=== PATIENT | female | born 1945 | race Caucasian/White ===

== ENCOUNTER → 2019-05-24 | Outpatient (CLI) | payer OTHER ==
[~2019-05-24] VITALS: Ht 170.2 cm; Wt 72.6 kg
[~2019-05-24] MED LIST: ASPIR 8181 MG PO; INDAPAMIDE1.25 MG PO; OMEPRAZOLE 20 M20 M1 PO; POTASSIUM20 PO; VERAPAMIL E.R240 M1 PO; ZYRTEC10 M5 PO
--- NOTE | 2019-05-26 16:06 | PATH ---
[facility] [place] [address] PATHOLOGY RPT PROCEDURE Name: RASTA URBANO [facility] [id number] Admission: 05/24/19 Date of : 41 Discharge: Report #: [id number] Path Case #: [id number] [facility] Accession Number: [id number] . 01 Material submitted: . PART A: colon - RANDOM COLON BIOPSY R/O MICROSCOPIC COLITIS PART B: colon - POLYP AT TRANSVERSE COLON. Modifiers: transverse PART C: colon - POLYP AT DESCENDING COLON. Modifiers: descending . 01 Clinical history: . Preop DX: intermittent diarrhea, hx polyps Postop DX: colon polyps A. R/O microscopic colitis . 02 Diagnosis: A. Large intestinal mucosa, random colon R/O microscopic colitis, endoscopic biopsy: - Scattered rare focus of acute cryptitis, see comment. - Negative for microscopic colitis. - Negative for dysplasia or malignancy. . B. Polyp, at transverse colon, endoscopic biopsy: - Tubular adenoma. - Negative for high-grade dysplasia. . C. Polyp, at descending colon, endoscopic biopsy: - Tubular adenoma. - Negative for high-grade dysplasia. (IUV:cali; 05/26/2019) QMS 05/26/2019 1326 Local . 02 Comment: The differential diagnosis for the focal acute cryptitis includes a resolved episode of colitis, a self-limited episode of colitis, diverticulitis, medication/drug induced colitis as well as due to bowel preparation. Please correlate clinically. (IUV:cali; 05/26/2019) . 02 Electronically signed: . Nadya Helms MD, Pathologist NPI- [id number] . 01 Gross description: . A. Received in formalin labeled "Rasta Urbano, random colon bx R/O micro colitis," are multiple fragments of esteban-brown soft tissue measuring 0.8 x 0.7 x 0.2 cm in aggregate dimensions and ranging from 0.1 to 0.4 cm in maximum dimension. The specimen is submitted entirely in cassette A1. [address] [address] PATHOLOGY RPT PROCEDURE Name: RASTA URBANO Room #: REG JENNA Kay#: [id number] Admission: 05/24/19 Date of : 41 Discharge: Report #: [id number] Path Case #: [id number] The smallest fragments may not survive processing. . B. Received in formalin labeled "Mchenry, [place], polyp at transverse colon," is a segment of esteban-brown soft tissue measuring 0.4 x 0.3 x 0.2 cm in greatest dimensions. The specimen is submitted entirely in cassette B1. . C. Received in formalin labeled "Mchenry, [place], polyp at descending colon," is a segment of pale esteban soft tissue measuring 0.3 x 0.2 x 0.2 cm in greatest dimensions. The specimen is submitted entirely in cassette C1. ([facility]; 05/25/2019) XDC/XDC 05/25/2019 0939 Local . 02 Pathologist provided ICD-10: D12.3, D12.4, K63.9 . 02 CPT . 511450, 364786, 701233 Specimen Comment: A courtesy copy of this report has been sent to Specimen Comment: [phone], . Specimen Comment: Report sent to / DR GARCIA Performed at: [address], [place] [id number] MD Francisco Jimenez MD Phone: [phone] Performed at: [address] [id number] MD Nadya Helms MD Phone: [phone]
--- NOTE | 2019-05-29 12:48 | P ---
[facility] [place] [address] [address] [place] [address] PROCEDURE REPORT Name: JUAN PABLO POWELL Room #: REG [facility]#: [id number] Admission: 05/24/19 Attend Phys: Jeremy Goldberg Discharge: Date of : 41 Report #: [id number] THIS REPORT FOR: //name// CC: Jeremy Hendrix MD DATE OF SERVICE: 05/24/2019 PROCEDURE PERFORMED: Colonoscopy with biopsies. HISTORY OF PRESENT ILLNESS: The patient is a 73-year-old female who is here for routine followup. Apparently, a history of polyps 11 years ago. She denies any symptoms other than some mild diarrhea at times. No family history of colon cancer. Plan is for colonoscopy. DESCRIPTION OF PROCEDURE: The risks and benefits of the procedure were explained to the patient, those risks including but not limited to bleeding, perforation and the risk of sedation. She understood these risks and gave informed consent. Sedation was given using propofol per Anesthesia. Next, a digital rectal exam was initially performed, which was normal. Next, using a standard Olympus colonoscope, the scope was placed in the patient's anus and advanced under direct vision to the cecum. The overall prep was good. The cecum and ileocecal valve were normal in appearance. The ascending colon was normal. In the transverse colon, a 3 mm sessile polyp was noted. This was removed with cold forceps, otherwise normal. A few scattered diverticula noted in the descending colon. Also noted was a 4 mm sessile polyp also removed with cold forceps. Random biopsies were also obtained today to rule out the possibility of microscopic colitis. In the sigmoid colon, multiple diverticula were noted. No evidence of inflammation, otherwise normal. The rectal mucosa was normal. On retroflexion, small nonbleeding internal hemorrhoids were noted. The scope was then withdrawn and the procedure terminated. The patient tolerated the procedure well. IMPRESSION: 1. Two small colonic polyps. 2. Left-sided diverticulosis. 3. Internal hemorrhoids. 4. Otherwise, normal colonoscopy. RECOMMENDATIONS: 1. Await biopsy results. 2. If polyps are adenomatous polyps, consider repeat colonoscopy in [address] [address] PROCEDURE REPORT Name: CAMMY POWELLKAYLEY Collier Room #: REG Den Kay#: [id number] Admission: 05/24/19 Attend Phys: Jeremy Goldberg Discharge: Date of : 41 Report #: [id number] Thank you for allowing me to participate in her care. <ELECTRONICALLY SIGNED> By: Jeremy Cummings MD 05/29/19 1248 [id number] Jeremy Cummings MD /nt
== END | disposition home or self-care (01) ==
LOC: GI 07:19
DX: R19.7 Diarrhea, unspecified (principal); D12.3 Benign neoplasm of transverse colon; D12.4 Benign neoplasm of descending colon; K63.9 Disease of intestine, unspecified; K57.30 Diverticulosis of large intestine without perforation or abscess without bleeding; K64.8 Other hemorrhoids; I10 Essential (primary) hypertension; K21.9 Gastro-esophageal reflux disease without esophagitis; Z86.010 Personal history of colon polyps; Z98.890 Other specified postprocedural states; Z79.899 Other long term (current) drug therapy; Z88.0 Allergy status to penicillin; Z88.2 Allergy status to sulfonamides; Z88.8 Allergy status to other drugs, medicaments and biological substances; Z79.82 Long term (current) use of aspirin
CPT/HCPCS: 62110; 62900